=== PATIENT | male | born 1995 | race African-American/Black ===

== ENCOUNTER 2018-11-06 15:17 | Emergency (ER) | payer MEDICAID ==
[~2018-11-06] VITALS: Ht 162.6 cm; Wt 100.0 kg
[~2018-11-06 15:17] MED LIST: FLUT16SP2 BOTHNARES; GUAI120015 PO; IBUP-1986 PO; METH4TAB3 PO; ONDA4TAB12 PO
[2018-11-06 15:34] VITALS: BP 152/89
== END 2018-11-06 19:28 | disposition home or self-care (01) ==
LOC: ER 15:18
DX: R42 Dizziness and giddiness (principal); J45.909 Unspecified asthma, uncomplicated; F12.90 Cannabis use, unspecified, uncomplicated; Z79.899 Other long term (current) drug therapy
CPT/HCPCS: 99281